=== PATIENT | female | born 2000 | race Caucasian/White ===

== ENCOUNTER 2021-07-30 19:58 | Emergency (ER) | payer MEDICAID ==
[~2021-07-30] VITALS: Ht 170.2 cm; Wt 59.0 kg
[2021-07-30 20:36] VITALS: BP 145/84
--- NOTE | 2021-07-30 20:40 | NUR ---
TO LOBBY A/W BED AMBULATORY
--- NOTE | 2021-07-30 21:00 | NUR ---
PT RETURN FROM XRAY
[2021-07-31 00:36] VITALS: BP 145/84
--- NOTE | 2021-07-31 00:37 | NUR ---
Patient discharged with v/s stable. Written and verbal after care instructions given and explained. Patient verbalized understanding. Ambulatory with steady gait. All questions addressed prior to discharge. Advised to follow up with PMD.
== END 2021-07-31 00:37 | disposition home or self-care (01) ==
LOC: MED 19:58
DX: S80.212A Abrasion, left knee, initial encounter (principal); F12.90 Cannabis use, unspecified, uncomplicated; V09.9XXA Pedestrian injured in unspecified transport accident, initial encounter; Y93.89 Activity, other specified; Y92.89 Other specified places as the place of occurrence of the external cause; Y99.8 Other external cause status
CPT/HCPCS: 29505; 73562; 99283

== ENCOUNTER 2023-09-15 07:19 | Emergency (ER) | payer MEDICAID ==
[~2023-09-15] VITALS: Ht 170.2 cm; Wt 69.4 kg
[2023-09-15 07:43] VITALS: BP 111/77; PULSE 59; TEMP 97.3
[2023-09-15] MEDS ORDERED: LID5T TP (08:05)
[2023-09-15] MEDS ORDERED: METH-1681 PO (08:05)
[2023-09-15] MEDS ORDERED: NAPR-54 PO (08:05)
== END 2023-09-15 08:09 | disposition home or self-care (01) ==
LOC: MED 07:19
DX: M54.50 Low back pain, unspecified (principal); Z79.899 Other long term (current) drug therapy; Z79.1 Long term (current) use of non-steroidal anti-inflammatories (NSAID)
CPT/HCPCS: 81002; 81025; 99283